=== PATIENT | female | born 1955 | race Caucasian/White ===

== ENCOUNTER 2017-01-13 10:41 | Inpatient (IN) | payer MEDICARE, MEDICAID ==
[2017-01-13] MEDS ORDERED: ALBUTEROL/IPRATROPIUM 1 VIAL SOL INH ONE (11:14)
[2017-01-13 11:38] LABS: BASOPHILS % (AUTO) 1 % (0-3); EOSINOPHILS % (AUTO) 1 % (0-9); HEMATOCRIT 47 % (35-47); MEAN CORPUSCULAR VOLUME 93 fL (81-99); MONOCYTES % (AUTO) 10.6 % (0-12); NEUTROPHILS % (AUTO) 75.6 % (37-80)
[2017-01-13] MEDS ORDERED: ALBUTEROL/IPRATROPIUM 1 VIAL SOL ONE (11:38)
[2017-01-13] MEDS: SODIUM CHLORIDE 0.9% 1000ML 1,000 ML IV SCH ×3 (11:48→15:19)
[2017-01-13 11:50] LABS: ALBUMIN 4.1 gm/dl (3.4-5.0); POTASSIUM 3.8 mMol/L (3.5-5.1)
[2017-01-13 12:51] LABS: APPEARANCE,URINE Cloudy; BILIRUBIN,URINE NEGATIVE (NEGATIVE); COLOR,URINE Yellow; GLUCOSE, URINE (UA) NEGATIVE (NEGATIVE); KETONES,URINE 1+ (NEGATIVE); LEUKOCYTE ESTERASE ,URINE TRACE (NEGATIVE); NITRATE,URINE POSITIVE (NEGATIVE); OCCULT BLOOD,URINE NEGATIVE (NEG-TRACE); UROBILINOGEN,URINE 0.2 (0.2-1.0 EU)
[2017-01-13 13:01] LABS: RBC,URINE NEG (0-3AV/HPF)
[2017-01-13] MEDS ORDERED: CEFTRIAXONE 1 GM PDS 1 GM in SODIUM CHLORIDE 0.9% 100 ML 100 ML IV ONE (13:25)
[2017-01-13] MEDS ORDERED: AZITHROMYCIN 500 MG PDS 500 MG in SODIUM CHLORIDE 0.9% 500 ML 500 ML IV ONE (13:25)
[2017-01-13] MEDS ORDERED: CEFTRIAXONE 1 GM PDS ONE (13:33)
[2017-01-13] MEDS ORDERED: SODIUM CHLORIDE 0.9% 500 ML 500 ML IV ONE (14:44)
[2017-01-13] MEDS ORDERED: AZITHROMYCIN 500 MG PDS IV ONE (14:44)
[2017-01-13] MEDS: DEXTROSE/SALINE 0.45/KCL 20MEQ 1,000 ML/1,000 ML SOL IV SCH (16:44)
[2017-01-13] MEDS ORDERED: AMPICILLIN 1 GM PDS ONE (19:22)
[2017-01-13] MEDS ORDERED: SODIUM CHLORIDE 0.9% 100 ML 100 ML IV ONE (19:23)
[2017-01-13] MEDS: AMPICILLIN 1 GM PDS 1 GM in SODIUM CHLORIDE 0.9% 100 ML 100 ML IV SCH (19:37)
[2017-01-13] MEDS ORDERED: ACETAMINOPHEN 650 MG SUP PR PRN (20:02)
[2017-01-13] MEDS ORDERED: ALBUTEROL/IPRATROPIUM 1 VIAL SOL INH PRN (20:03)
[2017-01-14] MEDS ORDERED: POTASSIUM CHLORIDE 2 MEQ/ML SOL IV ONE (01:23)
[2017-01-14] MEDS ORDERED: SODIUM CHLORIDE 0.9% 100 ML 100 ML IV ONE ×4 (01:26→18:27)
[2017-01-14] MEDS ORDERED: AMPICILLIN 1 GM PDS ONE ×4 (01:26→18:27)
[2017-01-14] MEDS: DEXTROSE/SALINE 0.45/KCL 20MEQ 1,000 ML/1,000 ML SOL IV SCH ×3 (01:30→22:29)
[2017-01-14] MEDS: AMPICILLIN 1 GM PDS 1 GM in SODIUM CHLORIDE 0.9% 100 ML 100 ML IV SCH ×4 (01:31→18:37)
[2017-01-14 07:28] LABS: BASOPHILS % (AUTO) 1 % (0-3); EOSINOPHILS % (AUTO) 2 % (0-9); HEMATOCRIT 39 % (35-47); MEAN CORPUSCULAR HGB CONC 32.9 gm/dl (32.0-36.0); MEAN CORPUSCULAR VOLUME 94 fL (81-99); NEUTROPHILS % (AUTO) 68.8 % (37-80)
[2017-01-14 07:38] LABS: CALCIUM 9.1 mg/dl (8.5-10.1); POTASSIUM 3.8 mMol/L (3.5-5.1)
[2017-01-14] MEDS ORDERED: AZITHROMYCIN 500 MG PDS IV SCH (09:00)
[2017-01-14] MEDS ORDERED: AZITHROMYCIN 500 MG PDS 500 MG in SODIUM CHLORIDE 0.9% 500 ML 500 ML IV SCH (09:00)
[2017-01-14] MEDS: ENOXAPARIN 40 MG SOL SC SCH (10:23)
[2017-01-14] MEDS ORDERED: AZITHROMYCIN 500 MG PDS IV ONE (12:40)
[2017-01-14] MEDS ORDERED: SODIUM CHLORIDE 0.9% 500 ML 500 ML IV ONE (12:40)
[2017-01-14] MEDS: AZITHROMYCIN 500 MG PDS 500 MG in SODIUM CHLORIDE 0.9% 500 ML 500 ML IV SCH (12:49)
[2017-01-14] MEDS: SODIUM CHLORIDE 0.9% 1000ML 1,000 ML IV SCH (13:03)
[2017-01-15] MEDS ORDERED: SODIUM CHLORIDE 0.9% 100 ML 100 ML IV ONE ×2 (01:20→06:48)
[2017-01-15] MEDS ORDERED: AMPICILLIN 1 GM PDS ONE ×2 (01:20→06:48)
[2017-01-15] MEDS: AMPICILLIN 1 GM PDS 1 GM in SODIUM CHLORIDE 0.9% 100 ML 100 ML IV SCH ×2 (01:28→06:53)
[2017-01-15] MEDS: DEXTROSE/SALINE 0.45/KCL 20MEQ 1,000 ML/1,000 ML SOL IV SCH ×3 (06:55→16:54)
[2017-01-15 07:25] LABS: CALCIUM 8.7 mg/dl (8.5-10.1); POTASSIUM 3.6 mMol/L (3.5-5.1)
[2017-01-15] MEDS: ENOXAPARIN 40 MG SOL SC SCH (08:16)
[2017-01-15] MEDS: METOPROLOL SUCCINATE 50 MG ER TAB PO SCH (14:08)
[2017-01-15] MEDS: TRAMADOL HYDROCHLORIDE 50 MG TAB PO SCH ×2 (14:08→20:11)
[2017-01-15] MEDS: AMOXIL/CLAVULANATE 400/5 ML PDR PO SCH (14:09)
[2017-01-15] MEDS ORDERED: SODIUM CHLORIDE 0.9% 500 ML 500 ML IV ONE (14:41)
[2017-01-15] MEDS ORDERED: AZITHROMYCIN 500 MG PDS IV ONE (14:41)
[2017-01-15] MEDS: AZITHROMYCIN 500 MG PDS 500 MG in SODIUM CHLORIDE 0.9% 500 ML 500 ML IV SCH (14:48)
[2017-01-15] MEDS: FAMOTIDINE 20 MG TAB PO SCH (20:11)
[2017-01-15] MEDS ORDERED: GABAPENTIN 300 MG CAP PO SCH (21:00)
[2017-01-16] MEDS: AMOXIL/CLAVULANATE 400/5 ML PDR PO SCH ×2 (00:57→12:42)
[2017-01-16] MEDS: DEXTROSE/SALINE 0.45/KCL 20MEQ 1,000 ML/1,000 ML SOL IV SCH ×2 (00:57→08:56)
[2017-01-16 01:15] VITALS: O2SAT 98
[2017-01-16] MEDS ORDERED: LEVOTHYROXINE SODIUM 137 MCG TAB PO SCH (07:00)
[2017-01-16 07:25] VITALS: BP 159/86; TEMP 97.3
[2017-01-16] MEDS: METOPROLOL SUCCINATE 50 MG ER TAB PO SCH (08:33)
[2017-01-16] MEDS: FAMOTIDINE 20 MG TAB PO SCH (08:33)
[2017-01-16] MEDS: ENOXAPARIN 40 MG SOL SC SCH (08:33)
[2017-01-16] MEDS: TRAMADOL HYDROCHLORIDE 50 MG TAB PO SCH ×2 (08:33→13:39)
[2017-01-16] MEDS ORDERED: ASPIRIN EC 81 MG PO SCH (09:00)
[2017-01-16] MEDS ORDERED: ASPIRIN 81 MG CHEWABLE CTB PO SCH (09:00)
[2017-01-16 09:12] VITALS: PULSE 97; RESP 18
== END 2017-01-16 14:03 | DRG 689 ==
LOC: ED 10:41 → ACUTE CARE 14:05
PROVIDERS: ADMIT Family Medicine; ATTEND Family Medicine
DX: N30.00 Acute cystitis without hematuria (principal); J18.1 Lobar pneumonia, unspecified organism; E86.0 Dehydration; G35 Multiple sclerosis
CPT/HCPCS: 36415; 71010; 80048; 80053; 81001; 85025; 87040; 87077; 87088; 87186; 87804; 94640; 94760; 96365; 96366; 99070; 99232; 99284; J0290; J0456; J0696; J1650; J3480; J7620

== ENCOUNTER 2017-03-20 17:50 | Emergency (ER) | payer MEDICARE, MEDICAID ==
[2017-03-20 18:33] VITALS: RESP 20; TEMP 98.9
[2017-03-20 19:05] LABS: APPEARANCE,URINE Cloudy; BILIRUBIN,URINE NEGATIVE (NEGATIVE); COLOR,URINE Yellow; GLUCOSE, URINE (UA) NEGATIVE (NEGATIVE); KETONES,URINE NEGATIVE (NEGATIVE); LEUKOCYTE ESTERASE ,URINE 1+ (NEGATIVE); NITRATE,URINE NEGATIVE (NEGATIVE); OCCULT BLOOD,URINE NEGATIVE (NEG-TRACE); UROBILINOGEN,URINE 0.2 (0.2-1.0 EU)
[2017-03-20 19:24] LABS: RBC,URINE 0-1 (0-3AV/HPF)
[2017-03-21 02:48] VITALS: BP 151/76; PULSE 90; O2SAT 96
== END 2017-03-20 21:30 | DRG 392 ==
LOC: ED 17:50
DX: R19.5 Other fecal abnormalities (principal); R50.9 Fever, unspecified
CPT/HCPCS: 81001; 99282; 99283

== ENCOUNTER 2017-12-20 07:04 | Inpatient (IN) | payer MEDICARE, MEDICAID ==
[2017-12-20] MEDS: SODIUM CHLORIDE 0.9% 1000ML 1,000 ML IV SCH ×2 (07:30→11:26)
[2017-12-20 07:33] LABS: LACTIC ACID 2.6 mMol/L (0.0-2.0)
[2017-12-20 07:37] LABS: BASOPHILS % (AUTO) 1 % (0-3); EOSINOPHILS % (AUTO) 1 % (0-9); HEMATOCRIT 41 % (35-47); HEMOGLOBIN 13.4 gm/dl (12.0-15.5); LYMPHOCYTES % (AUTO) 8.22 % (10-50); MEAN CORPUSCULAR HEMOGLOBIN 31.2 pg (27.0-32.0); MEAN CORPUSCULAR HGB CONC 32.7 gm/dl (32.0-36.0); MEAN CORPUSCULAR VOLUME 96 fL (81-99); MONOCYTES % (AUTO) 2.6 % (0-12); NEUTROPHILS % (AUTO) 87.5 % (37-80)
[2017-12-20] MEDS ORDERED: SODIUM CHLORIDE 0.9% FLUSH 10 ML SOL IV PRN (07:39)
[2017-12-20 07:41] LABS: ALBUMIN 3.3 gm/dl (3.4-5.0); BILIRUBIN,TOTAL 0.4 mg/dl (0.2-1.0); CALCIUM 9.4 mg/dl (8.5-10.1); CARBON DIOXIDE 30.3 mEq/L (21-32); CREATININE 0.87 mg/dl (0.60-1.00); POTASSIUM 4.2 mMol/L (3.5-5.1)
[2017-12-20 08:09] LABS: APPEARANCE,URINE Cloudy; BILIRUBIN,URINE NEGATIVE (NEGATIVE); COLOR,URINE Yellow; GLUCOSE, URINE (UA) NEGATIVE (NEGATIVE); KETONES,URINE TRACE (NEGATIVE); LEUKOCYTE ESTERASE ,URINE TRACE (NEGATIVE); NITRATE,URINE NEGATIVE (NEGATIVE); OCCULT BLOOD,URINE TRACE INTACT (NEG-TRACE); UROBILINOGEN,URINE 0.2 (0.2-1.0 EU)
[2017-12-20 08:14] LABS: TROP I 0.023 ng/ml (0.000-0.056)
[2017-12-20 08:16] LABS: RBC,URINE 0-2 (0-3AV/HPF)
[2017-12-20 08:17] LABS: BACTERIA 4+ (< 1+); CRYSTALS NEGATIVE (0-3 AVE/HPF); EPITHELIAL CELLS 0-2 (SQUAMOUS)
[2017-12-20] MEDS ORDERED: CEFTRIAXONE 1 GM PDS ONE ×3 (09:08→20:50)
[2017-12-20] MEDS: CEFTRIAXONE IV SCH ×2 (09:23→21:01)
[2017-12-20] MEDS: SODIUM CHLORIDE 0.9% IV SCH ×2 (09:23→21:01)
[2017-12-20] MEDS: PDS IV SCH ×2 (09:23→21:01)
[2017-12-20] MEDS ORDERED: AZITHROMYCIN 500 MG PDS IV SCH (09:30)
[2017-12-20] MEDS ORDERED: AZITHROMYCIN 500 MG PDS IV ONE (09:52)
[2017-12-20] MEDS ORDERED: ALBUTEROL/IPRATROPIUM 1 VIAL SOL INH ONE (10:00)
[2017-12-20 11:26] VITALS: RESP 18
[2017-12-20] MEDS: FAMOTIDINE 20 MG TAB PO SCH ×2 (11:43→21:17)
[2017-12-20] MEDS: ENOXAPARIN 40 MG SOL SC SCH (11:43)
[2017-12-20] MEDS: DOCUSATE SODIUM 100 MG SGL PO SCH ×2 (11:43→21:16)
[2017-12-20] MEDS: ACETAMINOPHEN 500 MG 500 MG TAB PO SCH ×2 (14:47→21:19)
[2017-12-20] MEDS: SODIUM CHLORIDE 0.9% FLUSH 10 ML SOL IV SCH (20:00)
[2017-12-20] MEDS ORDERED: SODIUM CHLORIDE 0.9% 50 ML 50 ML IV ONE ×2 (20:38→20:50)
[2017-12-20] MEDS ORDERED: GABAPENTIN 300 MG CAP PO SCH (21:00)
[2017-12-21] MEDS: SODIUM CHLORIDE 0.9% FLUSH 10 ML SOL IV SCH ×3 (04:03→11:42)
[2017-12-21 07:16] LABS: BASOPHILS % (AUTO) 1 % (0-3); EOSINOPHILS % (AUTO) 9 % (0-9); HEMATOCRIT 39 % (35-47); HEMOGLOBIN 12.2 gm/dl (12.0-15.5); LYMPHOCYTES % (AUTO) 28.3 % (10-50); MEAN CORPUSCULAR HEMOGLOBIN 29.9 pg (27.0-32.0); MEAN CORPUSCULAR HGB CONC 31.2 gm/dl (32.0-36.0); MEAN CORPUSCULAR VOLUME 96 fL (81-99); MONOCYTES % (AUTO) 6.4 % (0-12); NEUTROPHILS % (AUTO) 54.8 % (37-80)
[2017-12-21 07:18] LABS: CALCIUM 9.4 mg/dl (8.5-10.1); CREATININE 0.67 mg/dl (0.60-1.00)
[2017-12-21 07:23] LABS: CARBON DIOXIDE 29.1 mEq/L (21-32)
[2017-12-21] MEDS ORDERED: SODIUM CHLORIDE 0.9% 50 ML 50 ML IV ONE (08:44)
[2017-12-21] MEDS ORDERED: CEFTRIAXONE 1 GM PDS ONE (08:44)
[2017-12-21] MEDS: CEFTRIAXONE IV SCH (08:55)
[2017-12-21] MEDS: PDS IV SCH (08:55)
[2017-12-21] MEDS: SODIUM CHLORIDE 0.9% IV SCH (08:55)
[2017-12-21] MEDS: ENOXAPARIN 40 MG SOL SC SCH (08:56)
[2017-12-21] MEDS: ACETAMINOPHEN 500 MG 500 MG TAB PO SCH ×2 (08:56→13:47)
[2017-12-21] MEDS: DOCUSATE SODIUM 100 MG SGL PO SCH (08:56)
[2017-12-21] MEDS: FAMOTIDINE 20 MG TAB PO SCH (08:56)
[2017-12-21] MEDS ORDERED: LEVOTHYROXINE SODIUM 137 MCG TAB PO SCH (09:00)
[2017-12-21 09:41] VITALS: BP 131/83; PULSE 82; O2SAT 94
[2017-12-21 09:42] VITALS: TEMP 97.6
== END 2017-12-21 14:15 | DRG 206 ==
LOC: ED 07:04 → ACUTE CARE 10:20
PROVIDERS: ADMIT Family Medicine; ATTEND Family Medicine
PROC: F00ZHZZ Bedside Swallowing and Oral Function Assessment (ICD-10-PCS; principal; 2017-12-21)
DX: R41.82 Altered mental status, unspecified (principal); A41.9 Sepsis, unspecified organism; N39.0 Urinary tract infection, site not specified; E86.0 Dehydration; R09.02 Hypoxemia; K11.7 Disturbances of salivary secretion; N30.00 Acute cystitis without hematuria; R41.0 Disorientation, unspecified; G35 Multiple sclerosis
CPT/HCPCS: 36415; 71045; 80048; 80053; 81001; 82800; 83880; 84484; 85025; 85378; 87040; 87088; 93005; 94640; 96365; 96366; 99291; 99292; J0456; J0696; J1650; A9270-GY

== ENCOUNTER 2018-03-15 13:12 | Emergency (ER) | payer MEDICARE, MEDICAID ==
[2018-03-15 13:37] VITALS: TEMP 98
[2018-03-15 13:54] LABS: BASOPHILS % (AUTO) 2 % (0-3); EOSINOPHILS % (AUTO) 5 % (0-9); HEMATOCRIT 46 % (35-47); HEMOGLOBIN 15.3 gm/dl (12.0-15.5); LYMPHOCYTES % (AUTO) 32.2 % (10-50); MEAN CORPUSCULAR HEMOGLOBIN 30.1 pg (27.0-32.0); MEAN CORPUSCULAR VOLUME 91 fL (81-99); MONOCYTES % (AUTO) 2.8 % (0-12); NEUTROPHILS % (AUTO) 58.6 % (37-80)
[2018-03-15 14:04] LABS: ALBUMIN 3.9 gm/dl (3.4-5.0); BILIRUBIN,TOTAL 0.3 mg/dl (0.2-1.0); CALCIUM 10.4 mg/dl (8.5-10.1); CARBON DIOXIDE 32.2 mEq/L (21-32); CREATININE 0.8 mg/dl (0.60-1.00); POTASSIUM 4.6 mMol/L (3.5-5.1); TOTAL PROTEIN 7.7 gm/dl (6.4-8.2)
[2018-03-15 14:39] LABS: APPEARANCE,URINE Cloudy; BILIRUBIN,URINE NEGATIVE (NEGATIVE); COLOR,URINE Dark yellow; GLUCOSE, URINE (UA) NEGATIVE (NEGATIVE); KETONES,URINE TRACE (NEGATIVE); LEUKOCYTE ESTERASE ,URINE 1+ (NEGATIVE); NITRATE,URINE POSITIVE (NEGATIVE); OCCULT BLOOD,URINE NEGATIVE (NEG-TRACE); UROBILINOGEN,URINE 0.2 (0.2-1.0 EU)
[2018-03-15 14:54] LABS: BACTERIA 3+ (< 1+); CRYSTALS NEGATIVE (0-3 AVE/HPF); EPITHELIAL CELLS NEGATIVE (SQUAMOUS); RBC,URINE 0-3 (0-3AV/HPF); WBC,URINE 15-20 (0-5AV/HPF)
[2018-03-15 15:57] VITALS: BP 169/95; PULSE 92; RESP 16; O2SAT 96
== END 2018-03-15 16:23 | DRG 690 ==
LOC: ED 13:12
DX: N30.00 Acute cystitis without hematuria (principal); R41.0 Disorientation, unspecified; F03.90 Unspecified dementia, unspecified severity, without behavioral disturbance, psychotic disturbance, mood disturbance, and anxiety; E03.9 Hypothyroidism, unspecified; R40.2362 Coma scale, best motor response, obeys commands, at arrival to emergency department; R40.2142 Coma scale, eyes open, spontaneous, at arrival to emergency department; R40.2252 Coma scale, best verbal response, oriented, at arrival to emergency department
CPT/HCPCS: 36415; 71045; 80053; 81001; 85025; 87077; 87088; 87186; 99283

== ENCOUNTER 2018-03-17 13:34 | Emergency (ER) | payer MEDICARE, MEDICAID ==
[2018-03-17] MEDS ORDERED: SODIUM CHLORIDE 0.9% 1000ML 1,000 ML IV ONE (13:44)
[2018-03-17 13:50] VITALS: TEMP 97.8
[2018-03-17 13:53] LABS: CREATININE 0.96 mg/dl (0.60-1.00); POTASSIUM 4.6 mMol/L (3.5-5.1)
[2018-03-17 13:57] LABS: BASOPHILS % (AUTO) 1 % (0-3); CARBON DIOXIDE 31.4 mEq/L (21-32); EOSINOPHILS % (AUTO) 6 % (0-9); HEMATOCRIT 39 % (35-47); HEMOGLOBIN 13.1 gm/dl (12.0-15.5); LYMPHOCYTES % (AUTO) 36.8 % (10-50); MEAN CORPUSCULAR HEMOGLOBIN 30.5 pg (27.0-32.0); MEAN CORPUSCULAR HGB CONC 33.6 gm/dl (32.0-36.0); MEAN CORPUSCULAR VOLUME 91 fL (81-99); NEUTROPHILS % (AUTO) 41.9 % (37-80)
[2018-03-17 14:48] VITALS: RESP 20
[2018-03-17 15:20] VITALS: BP 162/77; PULSE 72; O2SAT 96
== END 2018-03-17 15:28 | DRG 884 ==
LOC: ED 13:34
DX: R40.4 Transient alteration of awareness (principal); N39.0 Urinary tract infection, site not specified; E86.0 Dehydration; G35 Multiple sclerosis
CPT/HCPCS: 36415; 70450; 80048; 85025; 93005; 96365; 99284

== ENCOUNTER 2018-03-18 13:48 | Inpatient (IN) | payer MEDICARE, MEDICAID ==
[2018-03-18] MEDS ORDERED: HYDROCORTISONE SODIUM SUCCIN 100 MG PDS IV ONE (14:11)
[2018-03-18] MEDS ORDERED: SODIUM CHLORIDE 0.9% 1000 ML SOL IV SCH (14:15)
[2018-03-18 14:17] LABS: BASOPHILS % (AUTO) 2 % (0-3); EOSINOPHILS % (AUTO) 7 % (0-9); HEMATOCRIT 36 % (35-47); MEAN CORPUSCULAR HEMOGLOBIN 32.3 pg (27.0-32.0); MEAN CORPUSCULAR VOLUME 90 fL (81-99); MONOCYTES % (AUTO) 2.2 % (0-12); NEUTROPHILS % (AUTO) 41.5 % (37-80)
[2018-03-18] MEDS ORDERED: HYDROCORTISONE SODIUM SUCCIN 100 MG PDS ONE (14:18)
[2018-03-18] MEDS: SODIUM CHLORIDE 0.9% 1000ML 1,000 ML IV SCH ×2 (14:25→21:43)
[2018-03-18] MEDS ORDERED: PIPERACILLIN/TAZOBACT 3.375 GM PDS IV ONE ×2 (14:29→20:18)
[2018-03-18 14:39] LABS: APPEARANCE,URINE Clear; BILIRUBIN,URINE NEGATIVE (NEGATIVE); COLOR,URINE Yellow; GLUCOSE, URINE (UA) NEGATIVE (NEGATIVE); KETONES,URINE NEGATIVE (NEGATIVE); LEUKOCYTE ESTERASE ,URINE NEGATIVE (NEGATIVE); NITRATE,URINE NEGATIVE (NEGATIVE); OCCULT BLOOD,URINE NEGATIVE (NEG-TRACE); UROBILINOGEN,URINE 0.2 (0.2-1.0 EU)
[2018-03-18] MEDS: PIPERACILLIN/TAZOBACT 3.375 GM 3.375 GM in SODIUM CHLORIDE 0.9% 100 ML 100 ML IV SCH ×2 (14:48→20:43)
[2018-03-18 14:50] LABS: LACTIC ACID 2.3 mMol/L (0.0-2.0)
[2018-03-18 15:03] LABS: CALCIUM 8.2 mg/dl (8.5-10.1); CARBON DIOXIDE 26.8 mEq/L (21-32); CREATININE 1.03 mg/dl (0.60-1.00); POTASSIUM 4.1 mMol/L (3.5-5.1)
[2018-03-18 15:04] LABS: BACTERIA 1+ (< 1+); CRYSTALS NEGATIVE (0-3 AVE/HPF); RBC,URINE 0-2 (0-3AV/HPF)
[2018-03-18] MEDS ORDERED: SODIUM CHLORIDE 0.9% FLUSH 10 ML SOL IV PRN (15:04)
[2018-03-18] MEDS ORDERED: ACETAMINOPHEN 500 MG 500 MG TAB PO PRN (15:10)
[2018-03-18] MEDS ORDERED: ONDANSETRON HCL 4 MG/2 ML SOL IV PRN (15:10)
[2018-03-18] MEDS: HYDROCORTISONE SODIUM SUCCIN 100 MG PDS IV SCH ×2 (15:50→23:28)
[2018-03-18] MEDS: ENOXAPARIN 40 MG SOL SC SCH (15:53)
[2018-03-18] MEDS ORDERED: SODIUM CHLORIDE 0.9% 100 ML 100 ML IV ONE (20:18)
[2018-03-18] MEDS ORDERED: SODIUM CHLORIDE 0.9% 1000ML 1,000 ML IV SCH (22:23)
[2018-03-19 00:12] VITALS: RESP 18
[2018-03-19] MEDS ORDERED: SODIUM CHLORIDE 0.9% 100 ML 100 ML IV ONE ×2 (02:27→09:20)
[2018-03-19] MEDS ORDERED: PIPERACILLIN/TAZOBACT 3.375 GM PDS IV ONE ×2 (02:27→09:20)
[2018-03-19] MEDS: PIPERACILLIN/TAZOBACT 3.375 GM 3.375 GM in SODIUM CHLORIDE 0.9% 100 ML 100 ML IV SCH ×2 (02:49→09:25)
[2018-03-19] MEDS: HYDROCORTISONE SODIUM SUCCIN 100 MG PDS IV SCH (07:43)
[2018-03-19 07:50] LABS: BASOPHILS % (AUTO) 0 % (0-3); EOSINOPHILS % (AUTO) 0 % (0-9); HEMATOCRIT 36 % (35-47); HEMOGLOBIN 12.4 gm/dl (12.0-15.5); LYMPHOCYTES % (AUTO) 34.5 % (10-50); MEAN CORPUSCULAR HEMOGLOBIN 30.6 pg (27.0-32.0); MEAN CORPUSCULAR HGB CONC 34.1 gm/dl (32.0-36.0); MEAN CORPUSCULAR VOLUME 90 fL (81-99); MONOCYTES % (AUTO) 3.1 % (0-12); NEUTROPHILS % (AUTO) 61.8 % (37-80)
[2018-03-19 07:57] LABS: CALCIUM 8.7 mg/dl (8.5-10.1); CARBON DIOXIDE 24.9 mEq/L (21-32); CREATININE 0.65 mg/dl (0.60-1.00); POTASSIUM 3.4 mMol/L (3.5-5.1)
[2018-03-19 08:01] VITALS: BP 164/76; PULSE 77; TEMP 99.1; O2SAT 97
[2018-03-19] MEDS: ENOXAPARIN 40 MG SOL SC SCH (09:25)
== END 2018-03-19 11:25 | DRG 872 ==
LOC: ED 13:48 → UNDOADMIN 14:59 → ACUTE CARE 14:59
PROVIDERS: ADMIT Emergency Medicine
DX: R65.10 Systemic inflammatory response syndrome (SIRS) of non-infectious origin without acute organ dysfunction (principal); F03.90 Unspecified dementia, unspecified severity, without behavioral disturbance, psychotic disturbance, mood disturbance, and anxiety; G35 Multiple sclerosis; N39.0 Urinary tract infection, site not specified
CPT/HCPCS: 36415; 71045; 80048; 81001; 85025; 87040; 96365; 96374; 99070; 99222; 99285; J1650; J1720; J2405; J2543

== ENCOUNTER 2018-03-27 12:40 | Emergency (ER) | payer MEDICARE, MEDICAID ==
[2018-03-27 14:27] LABS: HEMATOCRIT 42 % (35-47); HEMOGLOBIN 14.3 gm/dl (12.0-15.5); MEAN CORPUSCULAR HEMOGLOBIN 30.8 pg (27.0-32.0); MEAN CORPUSCULAR VOLUME 91 fL (81-99)
[2018-03-27 14:32] LABS: LACTIC ACID 1.6 mMol/L (0.0-2.0)
[2018-03-27 14:34] LABS: ALBUMIN 3.7 gm/dl (3.4-5.0); BILIRUBIN,TOTAL 0.2 mg/dl (0.2-1.0); CALCIUM 9.7 mg/dl (8.5-10.1); CREATININE 0.68 mg/dl (0.60-1.00); POTASSIUM 4.1 mMol/L (3.5-5.1); TOTAL PROTEIN 7.2 gm/dl (6.4-8.2)
[2018-03-27 14:54] VITALS: TEMP 97.2
[2018-03-27 15:06] LABS: BAND NEUTROPHILS % (MANUAL) 6 %; LYMPHOCYTES % (MANUAL) 27 % (10-50); NEUTROPHILS % (MANUAL) 57 % (37-80)
[2018-03-27 15:07] LABS: BASOPHILS % (MANUAL) 2 % (0-3); EOSINOPHILS % (MANUAL) 7 % (0-9); MONOCYTES % (MANUAL) 1 % (0-12); NORMAL RBCS PRESENT
[2018-03-27 15:09] VITALS: BP 111/86; PULSE 89; RESP 20; O2SAT 94
== END 2018-03-27 16:30 | DRG 153 ==
LOC: ED 12:40
DX: J06.9 Acute upper respiratory infection, unspecified (principal)
CPT/HCPCS: 36415; 71045; 80053; 85007; 85027; 99282; 99283

== ENCOUNTER 2018-04-12 18:14 | Emergency (ER) | payer MEDICARE, MEDICAID ==
[2018-04-12 18:29] VITALS: TEMP 99.6
[2018-04-12 18:42] LABS: BASOPHILS % (AUTO) 1 % (0-3); EOSINOPHILS % (AUTO) 6 % (0-9); HEMATOCRIT 40 % (35-47); HEMOGLOBIN 12.8 gm/dl (12.0-15.5); LYMPHOCYTES % (AUTO) 39.52 % (10-50); MEAN CORPUSCULAR HEMOGLOBIN 30.7 pg (27.0-32.0); MEAN CORPUSCULAR HGB CONC 32.1 gm/dl (32.0-36.0); MEAN CORPUSCULAR VOLUME 95 fL (81-99); MONOCYTES % (AUTO) 11.2 % (0-12); NEUTROPHILS % (AUTO) 42.1 % (37-80)
[2018-04-12 19:10] LABS: ALBUMIN 3.1 gm/dl (3.4-5.0); BILIRUBIN,TOTAL 0.2 mg/dl (0.2-1.0); CALCIUM 9.2 mg/dl (8.5-10.1); CARBON DIOXIDE 33.6 mEq/L (21-32); CREATININE 0.65 mg/dl (0.60-1.00); POTASSIUM 4.2 mMol/L (3.5-5.1); TOTAL PROTEIN 6.3 gm/dl (6.4-8.2)
[2018-04-12 19:14] LABS: LACTIC ACID 1.8 mMol/L (0.0-2.0)
[2018-04-12 19:30] LABS: APPEARANCE,URINE Cloudy; BILIRUBIN,URINE NEGATIVE (NEGATIVE); COLOR,URINE Yellow; GLUCOSE, URINE (UA) NEGATIVE (NEGATIVE); KETONES,URINE TRACE (NEGATIVE); LEUKOCYTE ESTERASE ,URINE 3+ (NEGATIVE); NITRATE,URINE POSITIVE (NEGATIVE); OCCULT BLOOD,URINE TRACE INTACT (NEG-TRACE); UROBILINOGEN,URINE 0.2 (0.2-1.0 EU)
[2018-04-12] MEDS ORDERED: SODIUM CHLORIDE 0.9% 1000ML 1,000 ML IV ONE (19:32)
[2018-04-12 19:41] LABS: BACTERIA 3+ (< 1+); CRYSTALS NEGATIVE (0-3 AVE/HPF); EPITHELIAL CELLS 0-2 (SQUAMOUS); WBC,URINE TNTC (0-5AV/HPF)
[2018-04-12] MEDS ORDERED: LEVOFLOXACIN 500 MG TAB PO ONE (19:48)
[2018-04-12] MEDS ORDERED: LEVOFLOXACIN 500 MG TAB ONE (19:50)
[2018-04-12 20:39] VITALS: BP 150/80; PULSE 73; RESP 22; O2SAT 99
== END 2018-04-12 21:13 | DRG 948 ==
LOC: ED 18:14
DX: R53.83 Other fatigue (principal); N30.00 Acute cystitis without hematuria; I95.9 Hypotension, unspecified; R41.82 Altered mental status, unspecified; G35 Multiple sclerosis; R40.2362 Coma scale, best motor response, obeys commands, at arrival to emergency department; R40.2142 Coma scale, eyes open, spontaneous, at arrival to emergency department; R40.2252 Coma scale, best verbal response, oriented, at arrival to emergency department
CPT/HCPCS: 71045; 80053; 81001; 85025; 87077; 87088; 87186; 93005; 96365; 99284; 99285; A9270-GY

== ENCOUNTER 2018-07-04 09:57 | Emergency (ER) | payer MEDICARE, MEDICAID ==
[2018-07-04 10:05] VITALS: TEMP 98.7
[2018-07-04 10:25] LABS: HEMATOCRIT 47 % (35-47); HEMOGLOBIN 14.6 gm/dl (12.0-15.5); MEAN CORPUSCULAR HEMOGLOBIN 30.1 pg (27.0-32.0); MEAN CORPUSCULAR HGB CONC 30.8 gm/dl (32.0-36.0); MEAN CORPUSCULAR VOLUME 98 fL (81-99)
[2018-07-04 10:31] LABS: ALBUMIN 3.5 gm/dl (3.4-5.0); BILIRUBIN,TOTAL 0.2 mg/dl (0.2-1.0); CARBON DIOXIDE 34.3 mEq/L (21-32); CREATININE 0.75 mg/dl (0.60-1.00); POTASSIUM 4.4 mMol/L (3.5-5.1); TOTAL PROTEIN 7.5 gm/dl (6.4-8.2)
[2018-07-04 10:33] LABS: TROP I 0.028 ng/ml (0.000-0.056)
[2018-07-04 10:48] LABS: BAND NEUTROPHILS % (MANUAL) 0 %; EOSINOPHILS % (MANUAL) 4 % (0-9); LYMPHOCYTES % (MANUAL) 31 % (10-50); MONOCYTES % (MANUAL) 7 % (0-12); NEUTROPHILS % (MANUAL) 57 % (37-80)
[2018-07-04 10:49] LABS: BASOPHILS % (MANUAL) 1 % (0-3); NORMAL RBCS NORMAL RBCS
[2018-07-04 11:47] LABS: APPEARANCE,URINE Slightly Cloudy; BILIRUBIN,URINE NEGATIVE (NEGATIVE); COLOR,URINE Yellow; GLUCOSE, URINE (UA) NEGATIVE (NEGATIVE); KETONES,URINE NEGATIVE (NEGATIVE); LEUKOCYTE ESTERASE ,URINE NEGATIVE (NEGATIVE); NITRATE,URINE NEGATIVE (NEGATIVE); OCCULT BLOOD,URINE NEGATIVE (NEG-TRACE); PH,URINE 7.5; UROBILINOGEN,URINE 0.2 (0.2-1.0 EU)
[2018-07-04 11:50] LABS: RBC,URINE 0-2 (0-3AV/HPF)
[2018-07-04 11:51] LABS: BACTERIA 2+ (< 1+); CRYSTALS 3+ AMORPH PHOS (0-3 AVE/HPF)
[2018-07-04 12:46] VITALS: BP 157/80; PULSE 103; RESP 15; O2SAT 97
== END 2018-07-04 13:15 | DRG 690 ==
LOC: ED 09:57
DX: N30.00 Acute cystitis without hematuria (principal); B96.4 Proteus (mirabilis) (morganii) as the cause of diseases classified elsewhere
CPT/HCPCS: 80053; 81001; 84484; 85007; 85027; 87077; 87088; 87186; 99283; 99284

== ENCOUNTER 2018-08-29 09:30 | Inpatient (IN) | payer MEDICARE, MEDICAID ==
[2018-08-29] MEDS ORDERED: SODIUM CHLORIDE 0.9% 1000ML 500 ML IV ONE (09:50)
[2018-08-29 10:04] LABS: BASOPHILS % (AUTO) 1 % (0-3); EOSINOPHILS % (AUTO) 0 % (0-9); HEMATOCRIT 43 % (35-47); LYMPHOCYTES % (AUTO) 4.7 % (10-50); MEAN CORPUSCULAR HEMOGLOBIN 29.1 pg (27.0-32.0); MEAN CORPUSCULAR HGB CONC 30.4 gm/dl (32.0-36.0); MEAN CORPUSCULAR VOLUME 96 fL (81-99); MONOCYTES % (AUTO) 7.2 % (0-12); NEUTROPHILS % (AUTO) 87.2 % (37-80)
[2018-08-29 10:26] LABS: ALBUMIN 2.4 gm/dl (3.4-5.0); BILIRUBIN,TOTAL 0.2 mg/dl (0.2-1.0); CALCIUM 9.4 mg/dl (8.5-10.1); CARBON DIOXIDE 35.8 mEq/L (21-32); CREATININE 0.69 mg/dl (0.60-1.00); POTASSIUM 3.9 mMol/L (3.5-5.1); TOTAL PROTEIN 6.3 gm/dl (6.4-8.2); TROP I 0.104 ng/ml (0.000-0.056)
[2018-08-29] MEDS ORDERED: ASPIRIN EC 81 MG PO STA (10:43)
[2018-08-29] MEDS ORDERED: ASPIRIN 81 MG CHEWABLE CTB ONE (11:50)
[2018-08-29 11:51] LABS: APPEARANCE,URINE Cloudy; BILIRUBIN,URINE NEGATIVE (NEGATIVE); COLOR,URINE Yellow; GLUCOSE, URINE (UA) NEGATIVE (NEGATIVE); KETONES,URINE 1+ (NEGATIVE); LEUKOCYTE ESTERASE ,URINE TRACE (NEGATIVE); NITRATE,URINE NEGATIVE (NEGATIVE); OCCULT BLOOD,URINE NEGATIVE (NEG-TRACE); UROBILINOGEN,URINE 0.2 (0.2-1.0 EU)
[2018-08-29] MEDS: SODIUM CHLORIDE 0.9% 1000ML 1,000 ML IV SCH ×3 (12:00→20:31)
[2018-08-29] MEDS ORDERED: CIPROFLOXACIN HCL 500 MG TAB PO STA (12:07)
[2018-08-29 12:09] LABS: BACTERIA 4+ (< 1+); CRYSTALS 2+ (0-3 AVE/HPF); EPITHELIAL CELLS 0-2 (SQUAMOUS); RBC,URINE 0-1 (0-3AV/HPF)
[2018-08-29] MEDS ORDERED: LEVOFLOXACIN 500 MG TAB PO ONE (12:10)
[2018-08-29] MEDS ORDERED: LEVOFLOXACIN 25 MG/ML 500 MG in SODIUM CHLORIDE 0.9% 100 ML 100 ML IV ONE (12:15)
[2018-08-29] MEDS ORDERED: METOPROLOL TARTRATE 5 MG/5 ML SOL IV ONE ×2 (12:24→12:28)
[2018-08-29] MEDS ORDERED: LEVOFLOXACIN 25 MG/ML SOL IV ONE (12:28)
[2018-08-29] MEDS ORDERED: BISACODYL 10 MG SUP PR PRN (13:14)
[2018-08-29] MEDS ORDERED: MAGNESIUM HYDROXIDE 30 ML SUS PO PRN (13:14)
[2018-08-29] MEDS ORDERED: ALBUTEROL NEB SOL 2.5MG/3ML 1 VIAL SOL NEB PRN (13:39)
[2018-08-29] MEDS ORDERED: PEG-400/PROPYLENE GLYCOL 1 DROP SOL RIGHTEYE PRN (14:15)
[2018-08-29] MEDS ORDERED: PATIENT EDUCATION 1 MISC PRN (14:42)
[2018-08-29] MEDS: ACETAMINOPHEN 500 MG 500 MG TAB PO SCH ×2 (15:30→21:23)
[2018-08-29] MEDS: PEG-400/PROPYLENE GLYCOL 1 DROP SOL RIGHTEYE SCH ×2 (17:00→22:12)
[2018-08-29] MEDS ORDERED: GABAPENTIN 300 MG CAP PO SCH (21:00)
[2018-08-29] MEDS: DOCUSATE SODIUM 100 MG SGL PO SCH (21:19)
[2018-08-29] MEDS: APAP/HYDROCODONE 1 EACH TABLET PO SCH ×2 (21:23→23:30)
[2018-08-29] MEDS: ASCORBIC ACID 500 MG TAB PO SCH (21:24)
[2018-08-29] MEDS: FAMOTIDINE 20 MG TAB PO SCH (21:26)
[2018-08-30] MEDS: ACETAMINOPHEN 500 MG 500 MG TAB PO SCH ×2 (04:11→10:49)
[2018-08-30] MEDS ORDERED: LEVOTHYROXINE SODIUM 137 MCG TAB PO SCH (07:00)
[2018-08-30 07:23] VITALS: BP 150/68; PULSE 112; RESP 28; TEMP 99.6; O2SAT 93
[2018-08-30] MEDS: FAMOTIDINE 20 MG TAB PO SCH (07:26)
[2018-08-30] MEDS: SODIUM CHLORIDE 0.9% 1000ML 1,000 ML IV SCH (07:52)
[2018-08-30] MEDS ORDERED: MAGNESIUM HYDROXIDE 30 ML SUS PO SCH (09:00)
[2018-08-30] MEDS ORDERED: MULTIVITAMIN2 1 EA TAB PO SCH (09:00)
[2018-08-30] MEDS ORDERED: LEVOFLOXACIN 25 MG/ML 500 MG in SODIUM CHLORIDE 0.9% 100 ML 100 ML IV SCH (09:00)
[2018-08-30] MEDS ORDERED: ZINC 50 MG PO SCH (09:00)
[2018-08-30] MEDS ORDERED: ASPIRIN EC 81 MG PO SCH (09:00)
[2018-08-30] MEDS ORDERED: CHOLECALCIFEROL 1,000 IU TAB PO SCH (09:00)
[2018-08-30] MEDS ORDERED: SODIUM CHLORIDE 0.9% 100 ML 100 ML IV ONE (09:44)
[2018-08-30] MEDS ORDERED: LEVOFLOXACIN 25 MG/ML SOL IV ONE (09:44)
[2018-08-30] MEDS: APAP/HYDROCODONE 1 EACH TABLET PO SCH (10:21)
[2018-08-30] MEDS: PEG-400/PROPYLENE GLYCOL 1 DROP SOL RIGHTEYE SCH (10:23)
[2018-08-30] MEDS: DOCUSATE SODIUM 100 MG SGL PO SCH (10:48)
[2018-08-30] MEDS: ASCORBIC ACID 500 MG TAB PO SCH (10:49)
== END 2018-08-30 12:45 | DRG 690 ==
LOC: ED 09:30 → ACUTE CARE 12:58 → UNDOADMIN 12:58 → ACUTE CARE 13:15
PROVIDERS: ADMIT Family Medicine; ATTEND Family Medicine
DX: R41.0 Disorientation, unspecified (principal); N39.0 Urinary tract infection, site not specified; E86.0 Dehydration; R79.89 Other specified abnormal findings of blood chemistry; G35 Multiple sclerosis; R09.02 Hypoxemia
CPT/HCPCS: 36415; 71045; 80053; 81001; 83880; 84443; 84484; 85025; 85651; 87077; 87088; 87186; 93005; 96365; 96366; 96374; 99070; 99283; 99285; J1956; A9270-GY; J3490